=== PATIENT | male | born 1950 | race Caucasian/White ===

== ENCOUNTER 2024-07-13 22:32 | Emergency (ER) | payer MEDICARE ==
[2024-07-13 23:13] VITALS: TEMP 96.9
[2024-07-13 23:30] VITALS: RESP 19
--- NOTE | 2024-07-13 23:41 | ERPHSYRPT ---
- History of Present Illness Time Seen by Provider: 07/13/24 23:15 Source: patient Exam Limitations: no limitations Patient Subjective Stated Complaint: c/o urinary retention Triage Nursing Assessment: Patient brought to ED with c/o urinary retention. patient had his catheter removed today and was told if retention occured, patient stated he was 10/10 pain and couldn't pee. patient was cathed upon arrival woth a 16 fr coude 10cc. 710ml urine output. patient is hypotensive but stated that he is normally hypotensive, gait steady with walker, patient doesn't appear to be in any distress at this time Physician History: 73-year-old male presents to our ED for evaluation of urinary retention. Patient had a cystoscopy done today due to urinary retention. Patient urinated well afterwards. Patient states his urologist believes the urinary retention is secondary to neurogenic bladder likely due to diabetes. Patient was advised to come to our ED if he developed subsequent urinary retention. Patient has not urinated since this morning. Patient complaining of suprapubic pain and tenderness. Patient otherwise feels well. He voices no other complaints or concerns at this time. Portions of this note were created with voice recognition technology. There may be grammatical, spelling, punctuation or sound alike errors Timing/Duration: today Severity: moderate Modifying Factors: Improves With: nothing Associated Symptoms: denies symptoms Allergies/Adverse Reactions: tamsulosin [From Flomax] Allergy (Verified 07/13/24 22:44) Fainting Hx Tetanus, Diphtheria Vaccination/Date Given: No Hx Influenza Vaccination/Date Given: No Hx Pneumococcal Vaccination/Date Given: No Travel Risk - International Travel Have you traveled outside of the country in past 3 weeks: No - Emerging Infectious Disease Are you exhibiting symptoms associated with any current EIDs: No - Review of Systems Constitutional: No Symptoms, No Fever, No Chills Eyes: No Symptoms Ears, Nose, & Throat: No Symptoms Respiratory: No Symptoms, No Cough, No Dyspnea Cardiac: No Symptoms, No Chest Pain, No Edema, No Syncope Abdominal/Gastrointestinal: No Symptoms, No Abdominal Pain, No Nausea, No Vomiting, No Diarrhea Genitourinary Symptoms: No Symptoms, No Dysuria Musculoskeletal: No Symptoms, No Back Pain, No Neck Pain Skin: No Symptoms, No Rash Neurological: No Symptoms, No Dizziness, No Focal Weakness, No Sensory Changes Psychological: No Symptoms Endocrine: No Symptoms Hematologic/Lymphatic: No Symptoms Immunological/Allergic: No Symptoms All Other Systems: Reviewed and Negative - Past Medical History Neurological History: No Pertinent History Cardiac History: Myocardial Infarction ([place]), Other Respiratory History: No Pertinent History Endocrine Medical History: Diabetes Type II Musculoskeletal History: Osteoarthritis Other Medical History: TONSIL CA, HE IS CANCER FREE. STOPPED SMOKING NEARLY 2 YEARS AGO. LOW BLOOD PRESSURE. 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[place]., septic shock in 2024, blood clots on each lung, esophagus dilation and expanded - Past Surgical History Past Surgical History: Yes Cardiac: Cardiac Stent Musculoskeletal: No Pertinent History Other Surgical History: maker, 35 radiation and 5 chemo treatments, cystoscopy, port removed last year, feeding tube - Social History Smoking Status: Former smoker Exposure to second hand smoke: No Drug Use: none - Social Determinants of Health Will the patient participate in the screening: Yes Do you worry about a steady place to live?: No Do you have any problems with any of the following?: No known problems In the past 12 months,have you had to go without utilities?: No Transportation Issues: No Has anyone in your support network made you feel unsafe?: No Have you or anyone in your house had to go w/o enough food: No - Nursing Vital Signs Nursing Vital Signs: Initial Vital Signs Temperature 96.9 F 07/13/24 23:02 Pulse Rate 77 07/13/24 23:02 Respiratory Rate 18 07/13/24 23:02 Blood Pressure 91/66 07/13/24 23:02 O2 Sat by Pulse Oximetry 99 07/13/24 23:02 Pain Scale Pain Intensity 0 - Physical Exam General Appearance: no apparent distress, alert Eye Exam: PERRL/EOMI, eyes nml inspection Ears, Nose, Throat Exam: normal ENT inspection, moist mucous membranes Neck Exam: normal inspection, full range of motion Respiratory Exam: normal breath sounds, lungs clear, No respiratory distress Cardiovascular Exam: regular rate/rhythm, normal peripheral pulses Gastrointestinal/Abdomen Exam: soft, normal bowel sounds, No tenderness, No mass Back Exam: normal inspection, normal range of motion, No CVA tenderness, No vertebral tenderness Extremity Exam: normal inspection, normal range of motion, pelvis stable Neurologic Exam: alert, oriented x 3, cooperative, normal mood/affect, sensation nml, No motor deficits Skin Exam: normal color, warm, dry, No rash Lymphatic Exam: No adenopathy SpO2 Interpretation: normal SpO2: 98 O2 Delivery: Room Air - Course Nursing assessment & vital signs reviewed: Yes Ordered Tests: Active Orders 24 hr Category Date Time Status UA W/RFX UR CULTURE Stat Lab 07/13/24 23:29 Completed Lab/Rad Data: Laboratory Results 07/13/24 Range/Units 23:29 Urine Color Yellow (Yellow) Urine Appearance Clear (Clear) Urine pH 7.5 (4.6-8.0) Ur Specific [place] 1.010 (1.005-1.030) Urine Protein Negative (Negative) Urine Glucose (UA) Negative (Negative) mg/dL Urine Ketones Negative (Negative) Urine Blood Negative (Negative) Urine Nitrite Negative (Negative) Urine Bilirubin Negative (Negative) Urine Urobilinogen 1.0 A (0.2) mg/dL Ur Leukocyte Esterase Negative (Negative) U Hyaline Cast (Auto) NONE SEEN (0-2) /LPF Urine Microscopic RBC 0-2 (0-5) /HPF Urine Microscopic WBC 0-2 (0-5) /HPF Ur Epithelial Cells None Seen (None Seen) /HPF Urine Bacteria None Seen (None Seen) /HPF Urine Culture Reflexed NO (NO) - Progress Progress: improved Progress Note: 73-year-old male presents to our ED for evaluation of urinary retention. Suprapubic was full. RN placed a 16 [place] catheter. 710 cc of urine flowed. Patient experienced immediate relief. UA sent. UA negative for UTI. Patient has a indwelling De Jesus catheter with a De Jesus bag in place. We will maintain this in place. Patient agrees to follow-up with his urologist within 48 hours for reevaluation. He voices no other complaints or concerns at this time. Portions of this note were created with voice recognition technology. There may be grammatical, spelling, punctuation or sound alike errors Complexity of problem addressed is moderate acute complicated. No critical care time. Complexity of data reviewed and analyzed is moderate. Test ordered chest reviewed results analyzed and correlated clinically with history and physical exam. Risk of complication and or risk of morbidity/mortality of patient m anagement is low. Vital stable. Time spent to discharge patient is approximately 15 minutes. Plan of care established for shared decision making. No social determinants of health present to impede follow-up. Portions of this note were created with voice recognition technology. There may be grammatical, spelling, punctuation or sound alike errors 07/13/24 23:44 Counseled pt/family regarding: diagnosis, need for follow-up, rad results - Departure Departure Disposition: Home Clinical Impression: Urinary retention Condition: Stable Critical Care Time: No Referrals: GILBERTO PARKER, TERRITORY DEVELOPMENT MANAGER [[facility] Provider, [facility]] - Follow up/PCP as directed Additional Instructions: Discharge/Care Plan SOPHIA GUAJARDO was seen on 07/14/24 in the Emergency Room. The patient was counseled regarding Diagnosis,Lab results, Imaging studies, need for follow up and when to return to the Emergency Room. Prescriptions given: Discharge Note I have spoken with the patient and/or caregivers. I have explained the patient's condition, diagnosis and treatment plan based on the information available to me at this time. I have answered the patient's and/or caregiver's questions and addressed any concerns. The patient and/or caregivers have as good understanding of the patient's diagnosis, condition and treatment plan as can be expected at this point. The vital signs have been stable. The patient's condition is stable and appropriate for discharge from the emergency department. The patient will pursue further outpatient evaluation with the primary care physician or other designated or consulting physician as outlined in the discharge instructions. The patient and/or caregivers are agreeable to this plan of care and follow-up instructions have been explained in detail. The patient and/or caregivers have received these instruction. The patient/and or caregivers are aware that any significant change in condition or worsening of symptoms should prompt an immediate return to this or the closest emergency department or call 911.
[2024-07-14 00:19] LABS: Appearance Clear (Clear); Bacteria None Seen /HPF (None Seen); Bilirubin Negative (Negative); Blood Negative (Negative); Epithelial Cells None Seen /HPF (None Seen); Glucose, Urine Negative (Negative); Hyaline Casts NONE SEEN /LPF (0-2); Ketones Negative (Negative); Leukocyte Esterase Negative (Negative); Nitrite Negative (Negative); Ph 7.5 (4.6-8.0); Protein,Urine Dip Negative (Negative); RBC 0-2 /HPF (0-5); WBC 0-2 /HPF (0-5)
[2024-07-14 00:46] VITALS: BP 90/53; PULSE 86; O2SAT 99
== END 2024-07-14 00:46 | disposition home or self-care (01) ==
LOC: ED 22:32
DX: R33.9 Retention of urine, unspecified (principal)
CPT/HCPCS: 51702; 81001; 99283

== ENCOUNTER 2025-01-09 17:37 | Emergency (ER) | payer MEDICARE ==
[2025-01-09 17:57] VITALS: BP 97/59; RESP 18; TEMP 97
[2025-01-09 18:29] LABS: Glucose, Urine Negative (Negative); Protein,Urine Dip Negative (Negative); RBC 0-2 /HPF (0-5); WBC >100 /HPF (0-5)
--- NOTE | 2025-01-09 18:37 | ERPHSYRPT ---
- History of Present Illness Patient Subjective Stated Complaint: PT HERE FOR URINARY RETENTION, PT HAD FC REMOVED ON FRIDAY, HE STATES TODDAY HE IS INCONT AND DRIPPLING, FEELING PRESSURE TO VOID Triage Nursing Assessment: PT ALERT, WALKED IN WITH FAMILY, RESP EASY, SKIN W/D/P. MOVES ALL EXT WELL, ABD SOFT, NONTENDER Physician History: Urinary retention, patient has De Jesus catheter removed on , he was been doing well, he is able to void until today, His bladder feels very full he st ates he needs to have a catheter replaced Timing/Duration: today Activites at Onset: physical activity Quality: pressure Onset Location: other (Suprapubic) Severity of Pain-Max: severe Severity of Pain-Current: severe Allergies/Adverse Reactions: tamsulosin [From Flomax] Allergy (Verified 01/09/25 17:48) Fainting Hx Tetanus, Diphtheria Vaccination/Date Given: No Hx Influenza Vaccination/Date Given: No Hx Pneumococcal Vaccination/Date Given: No Immunizations Up to Date: Yes Travel Risk - International Travel Have you traveled outside of the country in past 3 weeks: No - Emerging Infectious Disease Are you exhibiting symptoms associated with any current EIDs: No - Past Medical History Neurological History: No Pertinent History Cardiac History: Myocardial Infarction ([place]), Other Respiratory History: No Pertinent History Endocrine Medical History: Diabetes Type II Musculoskeletal History: Osteoarthritis Other Medical History: TONSIL CA, HE IS CANCER FREE. STOPPED SMOKING NEARLY 2 YEARS AGO. LOW BLOOD PRESSURE. 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[place]., septic shock in 2024, blood clots on each lung, esophagus dilation and expanded - Past Surgical History Past Surgical History: Yes Cardiac: Cardiac Stent Musculoskeletal: No Pertinent History Other Surgical History: maker, 35 radiation and 5 chemo treatments, cystoscopy, port removed last year, feeding tube - Social History Smoking Status: Former smoker Exposure to second hand smoke: No Drug Use: none - Social Determinants of Health Will the patient participate in the screening: Yes Do you worry about a steady place to live?: No Do you have any problems with any of the following?: No known problems In the past 12 months,have you had to go without utilities?: No Transportation Issues: No Has anyone in your support network made you feel unsafe?: No Have you or anyone in your house had to go w/o enough food: No - Nursing Vital Signs Nursing Vital Signs: Initial Vital Signs Temperature 97.0 F 01/09/25 17:56 Pulse Rate 76 01/09/25 17:56 Respiratory Rate 18 01/09/25 17:56 Blood Pressure 97/59 01/09/25 17:56 O2 Sat by Pulse Oximetry 97 01/09/25 17:56 Pain Scale Pain Intensity 0 - Physical Exam General Appearance: no apparent distress, alert Eye Exam: PERRL/EOMI Ears, Nose, Throat Exam: pharynx normal, moist mucous membranes Neck Exam: normal inspection, supple Respiratory Exam: normal breath sounds, lungs clear Cardiovascular Exam: regular rate/rhythm, No edema Gastrointestinal/Abdomen Exam: soft, distention (Bladder), No tenderness Back Exam: normal inspection, No CVA tenderness Extremity Exam: normal inspection, normal range of motion, No pedal edema Neurologic Exam: alert, oriented x 3, cooperative, sensation nml, No motor deficits Skin Exam: normal color, warm, dry, No rash SpO2 Interpretation: normal SpO2: 97 Ordered Tests: Active Orders 24 hr Category Date Time Status De Jesus [Catheter-[place] De Jesus] STAT Care 01/09/25 17:55 Active CULTURE,URINE Stat Lab 01/09/25 18:11 Received UA W/RFX UR CULTURE Stat Lab 01/09/25 18:11 Completed Lab/Rad Data: Laboratory Results 01/09/25 Range/Units 18:11 Urine Color Yellow (Yellow) Urine Appearance Cloudy A (Clear) Urine pH 7.5 (4.6-8.0) Ur Specific [place] 1.010 (1.005-1.030) Urine Protein Negative (Negative) Urine Glucose (UA) Negative (Negative) mg/dL Urine Ketones Negative (Negative) Urine Blood Negative (Negative) Urine Nitrite Negative (Negative) Urine Bilirubin Negative (Negative) Urine Urobilinogen 0.2 (0.2) mg/dL Ur Leukocyte Esterase Large A (Negative) U Hyaline Cast (Auto) NONE SEEN (0-2) /LPF Urine Microscopic RBC 0-2 (0-5) /HPF Urine Microscopic WBC >100 A (0-5) /HPF Ur Epithelial Cells None Seen (None Seen) /HPF Urine Bacteria Many A (None Seen) /HPF Urine Culture Reflexed ORDERED SEPARATELY (NO) - Progress Progress Note: 01/09/25 18:36 De Jesus catheter was placed he had approximately 1100 cc of urine returned, catheter be left in place, he will call his urologist for follow-up - Departure Departure Disposition: Home Clinical Impression: Urinary retention, Acute UTI Condition: Stable Critical Care Time: No Referrals: GILBERTO PARKER NP [Primary Care Provider, [facility]] - Follow up/PCP as directed Instructions: Urinary Retention (DC), Urinary tract infection - Discharge instructions Prescriptions: cefaDROXiL [Cefadroxil] 500 mg PO BID #14 cap
[2025-01-09] MEDS ORDERED: KEFLEX 500 MG ONE (18:44)
[2025-01-09] MEDS: KEFLEX 500 MG PO ONE (18:47)
[2025-01-09 19:01] VITALS: PULSE 78; O2SAT 98
== END 2025-01-09 19:10 | disposition home or self-care (01) ==
LOC: ED 17:37
DX: N39.0 Urinary tract infection, site not specified (principal); R33.9 Retention of urine, unspecified; E11.9 Type 2 diabetes mellitus without complications; Z79.899 Other long term (current) drug therapy